=== PATIENT | female | born 1990 | race Two or more races ===

== ENCOUNTER 2024-10-07 14:13 | Emergency (ER) | payer OTHER ==
[~2024-10-07] VITALS: Ht 198.1 cm; Wt 113.4 kg
[2024-10-07 14:50] LABS: APPEARANCE,URINE CLEAR (CLEAR); BILIRUBIN,URINE NEGATIVE (NEGATIVE); BLOOD, URINE 3+ Ery/uL (NEGATIVE); COLOR,URINE YELLOW (YELLOW); KETONES,URINE TRACE mg/dL (NEGATIVE); LEUKOCYTE ESTERASE ,URINE NEGATIVE (NEGATIVE); NITRITE, URINE NEGATIVE (NEGATIVE); PROTEIN,URINE NEGATIVE (NEGATIVE); UGLUCOSE NEGATIVE (NEGATIVE); UROBILINOGEN,URINE 0.2 EU/dL (0.2)
[2024-10-07 15:03] LABS: BASOPHILS % (AUTO) 0.4 % (0.0-2.0); EOSINOPHILS # (AUTO) 0.1 K/uL (0.0-0.7); EOSINOPHILS % (AUTO) 1.1 % (0.0-6.0); HEMATOCRIT 42 % (33-45); LYMPHOCYTES # (AUTO) 1.3 K/uL (0.8-4.8); LYMPHOCYTES % (AUTO) 12.1 % (20.0-44.0); MEAN CORPUSCULAR HEMOGLOBIN 31 PG (26.0-33.0); MEAN CORPUSCULAR HGB CONC 36 g/dl (31.0-36.0); MEAN CORPUSCULAR VOLUME 88 fL (82-100); MONOCYTES # (AUTO) 0.6 K/uL (0.1-1.30); MONOCYTES % (AUTO) 5.3 % (2.0-12.0); NEUTROPHILS # (AUTO) 8.7 K/uL (1.8-8.9); NEUTROPHILS % (AUTO) 81.1 % (43.0-81.0); PLATELET COUNT (AUTO) 430 K/uL (150-450); RED CELL DISTRIBUTION WIDTH 12.8 % (11.5-15.0); WHITE BLOOD COUNT (AUTO) 10.7 K/uL (4.3-11.0)
[2024-10-07 15:15] LABS: CALCIUM, SERUM 9.4 mg/dL (8.5-10.1); POTASSIUM 4.3 mmol/L (3.5-5.1)
[2024-10-07] MEDS ORDERED: KETOROLAC TROMETHAMINE 15 MG/ML VIAL ONE (15:16)
[2024-10-07] MEDS: KETOROLAC TROMETHAMINE 15 MG/ML VIAL IM ONE (15:22)
[2024-10-07 15:28] LABS: ADD URINE CULTURE NO; BACTERIA,URINE Few /HPF (None Seen); RBC,URINE 51-80 /HPF (0-2); WBC,URINE 0-2 /HPF (0-3)
[2024-10-07 15:46] VITALS: BP 135/90; TEMP 98.4; O2SAT 99
== END 2024-10-07 15:47 | disposition home or self-care (01) ==
LOC: ER 14:24
DX: N20.0 Calculus of kidney (principal); Z87.442 Personal history of urinary calculi; Z88.2 Allergy status to sulfonamides
CPT/HCPCS: 99283; 96372; 85025; 80048; 81001; 36415; J1885

== ENCOUNTER 2025-03-04 10:54 | Emergency (ER) | payer OTHER, BC ==
[~2025-03-04] VITALS: Ht 195.6 cm; Wt 120.7 kg
[2025-03-04 11:20] VITALS: TEMP 98
[2025-03-04] MEDS ORDERED: MORPHINE SULFATE INJ 4 MG/ML DISP.SYRIN ONE (11:34)
[2025-03-04] MEDS ORDERED: ONDANSETRON HCL/PF 4 MG/2 ML VIAL ONE (11:34)
[2025-03-04 11:41] LABS: PLATELET COUNT (AUTO) 436 K/uL (150-450); RED BLOOD CELL COUNT(AUTO) 4.15 MIL/uL (4.0-5.2); RED CELL DISTRIBUTION WIDTH 13.0 % (11.5-15.0); WHITE BLOOD COUNT (AUTO) 12.4 K/uL (4.3-11.0)
[2025-03-04] MEDS: ONDANSETRON HCL/PF 4 MG/2 ML VIAL IVP ONE (11:41)
[2025-03-04] MEDS: IV NS 0.9% 1,000 ML BAG IV ONE (11:41)
[2025-03-04] MEDS: MORPHINE SULFATE INJ 2 MG/ML DISP.SYRIN IV ONE (11:41)
[2025-03-04 11:47] LABS: CALCIUM, SERUM 9.8 mg/dL (8.5-10.1); CREATININE 1.1 mg/dL (0.6-1.3); SODIUM SERUM 131 mmol/L (136-145); UREA NITROGEN, BLOOD 13 mg/dL (7-18)
[2025-03-04 11:53] LABS: ASPARTATE AMINOTRANSFERASE 76 U/L (15-37); TOTAL PROTEIN, SERUM 6.9 g/dL (6.4-8.2)
[2025-03-04] MEDS ORDERED: IOHEXOL-350 100 ML VIAL IV ONE (12:03)
[2025-03-04] MEDS ORDERED: IV NS 0.9% 250 ML IV ONE (12:03)
[2025-03-04 12:11] LABS: INR 0.98 (0.91-1.10)
[2025-03-04 13:10] VITALS: BP 128/73; O2SAT 100
== END 2025-03-04 13:21 | disposition home or self-care (01) ==
LOC: ER 10:56
DX: G89.18 Other acute postprocedural pain (principal); E87.1 Hypo-osmolality and hyponatremia; Z87.442 Personal history of urinary calculi; Z88.2 Allergy status to sulfonamides; Z60.2 Problems related to living alone; Z98.890 Other specified postprocedural states
CPT/HCPCS: 99285; 96374; 71275; 71045; 96361; 96375; 93005; 85025; 80048; 80076; 85378; 36415; 84484; 85730; J2270; J2405; J7030; J7050; Q9967

== ENCOUNTER 2025-05-30 15:09 | Emergency (ER) | payer OTHER, BC ==
[~2025-05-30] VITALS: Ht 198.1 cm; Wt 113.4 kg
[2025-05-30 15:55] LABS: APPEARANCE,URINE CLEAR (CLEAR); BLOOD, URINE Moderate Ery/uL (NEGATIVE); LEUKOCYTE ESTERASE ,URINE Negative (NEGATIVE); NITRITE, URINE NEGATIVE (NEGATIVE); UGLUCOSE Negative (NEGATIVE)
[2025-05-30 15:57] LABS: ADD URINE CULTURE NO; SQUAMOUS EPITHELIAL CELL,UR Few /HPF (None Seen)
[2025-05-30] MEDS ORDERED: CEFTRIAXONE 1 G VIAL ONE (17:29)
[2025-05-30] MEDS ORDERED: AZITHROMYCIN 250 MG TABLET ONE (17:29)
[2025-05-30] MEDS: CEFTRIAXONE 1 G VIAL IM ONE (17:44)
[2025-05-30] MEDS: AZITHROMYCIN 250 MG TABLET PO ONE (17:44)
[2025-05-30 17:47] VITALS: BP 131/78; TEMP 98.3; O2SAT 100
[2025-06-01 21:11] LABS: CHLAMYDIA TRACHOMATIS NAA Negative (Negative); NEISSERIA GONORRHOEAE NAA Negative (Negative)
== END 2025-05-30 17:48 | disposition home or self-care (01) ==
LOC: ER 15:19
DX: R10.32 Left lower quadrant pain (principal); R03.0 Elevated blood-pressure reading, without diagnosis of hypertension; Z87.442 Personal history of urinary calculi; Z88.2 Allergy status to sulfonamides; Z98.82 Breast implant status
CPT/HCPCS: 99285; 96372; 76870; 81001; 87491; 87591; J0696